=== PATIENT | male | born 1975 | race Asian ===

== ENCOUNTER 2017-05-19 10:20 | Emergency (ER) | payer BC ==
[~2017-05-19] VITALS: Ht 165.1 cm; Wt 77.0 kg
[~2017-05-19 10:20] MED LIST: CHOL1000 PO; ERGO500037 PO
[2017-05-19 10:47] VITALS: TEMP 36.9; Ht 165.1 cm; Wt 77.0 kg
--- NOTE | 2017-05-19 11:21 | EMERGENCY ROOM VISIT NOTE ---
ED Visit Note First contact with patient: 10:58 CHIEF COMPLAINT: Right great toenail injury this morning HISTORY OF PRESENT ILLNESS: Patient is a 42-year-old male who presents emergency department for evaluation of a right great toenail injury that he sustained earlier this morning. He was playing soccer with his son barefoot, his son kicked the ball, accidentally striking the patient in the right foot. Patient notes that the middle portion of his great toenail broke and bent backwards slightly. There is scant bleeding, which has been controlled. The patient denies any pain. He cleansed the area with soap and water. He applied a Band-Aid and then had a postoperative shoe that he put on. He is concerned because he is scheduled to do a lot of traveling next week and he wants to make sure there is nothing else that he needs to do for this. He denies any pain. REVIEW OF SYSTEMS: Review of systems as per HPI. All other systems reviewed were negative. At least 6 systems reviewed. PMH: Electronic medical records are reviewed and summarized as above/below. See Problem List.. SOCIAL HISTORY: Patient lives at home with his family. Non-smoker. PHYSICAL EXAM: Vital Signs: Reviewed Nurse's notes. Examination of the right great toe note and injury to the midportion of the great toenail. There are 2 cracks in the toenail, the midportion of the nail has been lifted off of the nailbed slightly, and reflected backwards. There is some dried blood under the nail, but no gross instability, no subungual hematoma. There is no bony tenderness to palpation and range of motion is full. EMERGENCY DEPARTMENT COURSE: The patient was seen and assessed as above. He was reassured. He has an injury to the distal portion of the nail, otherwise the nail is well-seated on the nailbed, and wound care measures were discussed. The nail does not require any sutures to stabilize it. He was offered, but declined radiographs, as he does not feel that there is any fracture. He was encouraged to keep the nail covered to avoid catching it on clothing. He may return to normal breathing and activity. He can wear the postoperative shoe as needed. Medication reconciliation: I attest that I have personally reviewed the patient' s current medication list. Blood pressure screening : Patient was found to have normal blood pressure on screening and does not require follow-up. Problem List Medical Problems: (1) Left sided chest pain Status: Resolved (2) No active medical problems Status: Resolved (3) No known allergies Status: Resolved Current/Historical Medications Scheduled Cholecalciferol (Vitamin D3), 1 TAB PO DAILY Allergies Coded Allergies: No Known Allergies (Unverified , 05/19/17) Vital Signs Date Time Temp Pulse Resp B/P (MAP) Pulse Ox O2 Delivery O2 Flow Rate FiO2 05/19/17 11:29 80 16 128/81 100 05/19/17 10:47 36.9 100 20 119/76 97 Room Air Departure Information Impression Primary Impression: Injury of toenail of right foot Referrals Syed Noel M.D. ([facility]) (PCP) Patient Instructions My [facility] Additional Instructions Clean the area daily with mild soap and water. Secure the damaged nail with medical tape to avoid catching it on your clothing. The damaged portion of the nail will gradually grow out. You may trim the nail as you normally would. May resume normal activity. Follow-up with her primary care provider as needed. Problem Qualifiers Primary Impression: Injury of toenail of right foot Encounter type: initial encounter Qualified Codes: S99.921A - Unspecified injury of right foot, initial encounter
[2017-05-19 11:29] VITALS: BP 128/81; PULSE 80; O2SAT 100
== END 2017-05-19 11:30 | disposition home or self-care (01) ==
LOC: C.EDB 10:21 → C.EDD 11:30
DX: S99.921A Unspecified injury of right foot, initial encounter (principal); Y93.66 Activity, soccer